=== PATIENT | male | born 1975 | race Caucasian/White ===

== ENCOUNTER 2025-11-10 18:09 | Emergency (ER) | payer SELFPAY ==
--- OUTSIDE RECORDS SUMMARY | 2025-11-10 18:12 | XMS_ITS | Clinical Summary ---
Author Organization [facility] Address [address] [place] [address] Care Team Providers Care Choke Setter Name Role Phone Clinic, No Pcp Or Primary Care Provider Unavaila ble Allergies No known active allergies Medications MedicationSigDispense QuantityRefillsLast FilledStart DateEnd DateStatus meloxicam (MOBIC) 7.5 mg tablet Indications:Chronic dental painTake 1 Tablet (7.5 mg) by mouth once daily. 7 Tablet 06/27/2023ctive Active Problems ProblemNoted DateDiagnosed DateErectile /25/6334Uhcrlim16/25/2022 Overview (09/08/2025): Diagnosis Code replaced due to regulatory update Immunizations ImmunizationAdministration DatesNext RfpUdjf2505/06/2022 Family History Medical HistoryRelationNameCommentsCancerFatherglioblastomaCancerSonlymphoma RelationNameStatusCommentsFatherDeceasedMotherAliveSon Social History Tobacco UseTypesPacks/DayYears UsedDateSmoking Tobacco: Every DayCigarettes0.525 Smokeless Tobacco: CurrentChew Tobacco Cessation:Ready to Q uit: Yes; Counseling Given: Yes Alcohol UseStandard Drinks/WeekCommentsNot Currently0 (1 standard drink = 0.6 oz pure alcohol)PHQ-2AnswerDate RecordedPHQ-2 TOTAL VEACY520ocial ConnectionsAnswerDate RecordedFrequency of Communication with Friends and Family Not on file06/30/2024Financial Resource StrainAnswerDate RecordedDifficulty of Paying Living Gjeoyszw923ifficulty of Paying Living ExpensesNot on file 06/27/2023Food InsecurityAnswerDate RecordedWorried About Running Out of Food in the Last Nuln068Transportation NeedsAnswerDate RecordedLack of Transportation (Medical)Housing StabilityAnswerDate RecordedUnable to Pay for Housing in the Last Wadf382Sex and Gender InformationValueDate RecordedSex Assigned at BirthNot on fileLegal FwkYxxr1005/03/2020 9:08 AM CDT Gender IdentityNot on fileSexual OrientationNot on file Last Filed Vital Signs Vital SignReadingTime TakenCommentsBlood Jdnbeenj071/71006/27/2023 5:10 PM CDT Knmom9692/29/2023 5:10 PM QCVUcyxoxhafny85.2 ??C (99 ??F)06/27/2023 5:10 PM CDT Respiratory Zmyc321206/27/2023 5:10 PM CDTOxygen Ddrohsjnzx41%06/27/2023 5:10 PM CDTInhaled Oxygen Concentration--Vjilmg04.2 kg (190 lb)06/27/2023 5:10 PM CDT Nfqvwd256.9 cm (6')05/06/2022 4:24 PM CDTBody Mass Index25.77005/06/2022 4:24 PM CDT Plan of Treatment Health MaintenanceDue DateLast DoneCommentsHIV for age 15-Hepatitis C screening for age 18-Hepatitis B series for 19+ (1 of 3 - 19+ 3- dose series)1994Colonoscopy through age Depression screening for age 12+/2BMI (ht and wt on same day) for age 18+05/06/2023 05/06/2022, 04/16/2022neumococcal series for age 50+ (1 of 1 - PCV)2025 Zoster (shingles) series for age 50+ (1 of 2)5COVID-19 vaccine series (3 - 2024- season), 02/21/2021Influenza Vaccine (#1) 2025Lipids for age 45-750/Tetanus phjcmyh9105/06/2032 05/06/2022SV vaccine for adults or (1 - 1-dose 75+ series)2050 Procedures Procedure NamePriorityDate/TimeAssociated DiagnosisCommentsLIPID PANELRoutine 05/06/2022 4:53 PM CDT Mixed hyperlipidemia from Last 3 Months or Most Recently Relevant to Health Maintenance Results * (ABNORMAL) LIPID PANEL (05/06/2022 4:53 PM CDT)ComponentValueRef RangeTest MethodAnalysis TimePerformed AtPathologist SignatureCHOLESTEROL,FPHQF727(H)100 - 199 mg/dL05/07/2022 7:27 PM [facility] EGWYPWTZQBZGJ935<150 mg/dL05/07/2022 7:27 PM [facility] LABORATORYHDL FRHGHWCYCAG94>40 mg/dL05/07/2022 7:27 PM [facility] LABORATORYNON-HDL ZOZUIJRDRTJ677<145 mg/dl05/07/2022 7:27 PM [facility] LABORATORYCHOL/HDL RATIO2.84<4.50 05/07/2022 7:27 PM [facility] LABORATORYLDL LDVXNNLGQGD830<=130 mg/dL05/07/2022 7:27 PM [facility]- CENTRAL LABORATORYVLDL JXKZUCXWHIM72<=30 mg/dL05/07/2022 7:27 PM [facility]ENTRAL LABORATORYPROVIDER ORDERED VLWZAZIHYABL05/08/2022 7:27 PM [facility]ENTRAL LABORATORYSpecimen (Source) Anatomical Location / LateralityCollection Method / VolumeCollection Time Received TimeBloodBLOOD SPECIMEN / UnknownVenipuncture / Vpiyevm5505/06/2022 4:53 PM CDT05/06/2022 4:53 PM CDT Narrative Authorizing ProviderResult TypeResult StatusRodevens Matthews MDCHEMISTRY Final ResultPerforming OrganizationAddressCity/State/ZIP CodePhone Number [facility] [address] [place] [address], from Last 3 Months or Most Recently Relevant to Health Maintenance Insurance * Guarantor: Josh PalAccount TypeRelation to PatientDate of BirthPhone Billing AddressPersonal/QjkogiQopj1975 [address] [place] [address] Care Teams Team MemberRelationshipSpecialtyStart DateEnd Date Clinic, No Pcp Or . PCP - General05/03/20
--- OUTSIDE RECORDS SUMMARY | 2025-11-10 18:12 | XMS_ITS | Patient Health Record ---
Author Organization [facility] Address [address] [place] [address] Phone [phone] Care Team Providers Care Public Affairs Officer Name Role Phone Marina Wright Primary Care Provider Delia PEARSON MD [facility] [phone] Reason For Referral No Information Medications Medication SIG (Take, Route, Frequency, Duration) Notes Start Date End Date Diagnosis (ICD Code) Status Lidocaine Viscous HCl Not-TakingdexAMETHasone 0.5 MG/5ML Lmprwjcy75 ml swish and spit Three times a day; Duration: 10 days05/12/2019Aphthous ulcer of mouth (ICD_10 - K12.0)Active IbuprofenActiveDoxycycline HyclateActivevalACYclovir HClActive HYDROcodone-AcetaminophenActive Social History Tobacco Use: Social History Observation Description Date Details (start date - stop date) Current Smoker NA - NA Sex Observation Social History Observation Description Sex Observation Male Social History :Social InfoQuestionAnswerNotesHow often do you consume alcohol?Answer:never Recreational drug useSocial InfoQuestionAnswerNotesDid you ever use recreational drugs?Answer:YesTobacco Use:Social InfoQuestionAnswerNotesTobacco use/smokingAre you acurrent smoker? How many cigarettes a day do you smoke?6-10 Problems Problem Type SNOMED Code ICD Code Dates Problem Status W/U Sta tus Risk Notes Problem Oral phase dysphagia (350535036) Dysphagia, oral phase (R13.11) Added On:05/12/2019 Active confirmed ProblemAphthous ulcer of mouth (705631528)Aphthous ulcer of mouth (K12.0) Added On:05/12/2019 ActiveconfirmedProblemOropharyngeal dysphagia (34955771)Dysphagia, pharyngeal (R13.13) Added On:05/12/2019 Activeconfirmed Plan Of Treatment No Information Insurance Providers Payer Name Payer Address Payer Phone Subscriber Number Group Number Insured Name Patient Relationship to Insured Coverage Start Date Coverage End Date [facility] PRIOR TO 21 [address] [place], [place] [id number] Josh Harry Self - patient is the insured Medical (General) History Medical History History ICD Code Pre-DM
--- OUTSIDE RECORDS SUMMARY | 2025-11-10 18:12 | XMS_ITS | Clinical Summary ---
Author Organization [facility] Address [address] [place] [address] Care Team Providers Care Linen Sorter Name Role Phone [facility] Primary Care Provider Allergies No known active allergies Medications MedicationSigDispense QuantityRefillsLast FilledStart DateEnd DateStatus magic mouthwash (FIRST-MOUTHWASH BLM) compounding kit Swish and swallow 5-10 mLs in mouth every 6 hours as needed for mouth sores 119 mL 05/03/2019Active lidocaine HCl (XYLOCAINE) 2 % solution Swish and spit 10 mLs in mouth every 3 hours as needed for moderate pain ; Max 8 doses/24 hour period. 100 mL 05/08/2019Active Active Problems ProblemNoted DateDiagnosed DateSuicidal zimwrems37/28/2015CARDIOVASCULAR SCREENING; LDL GOAL LESS THAN 12983 Social History Tobacco UseTypesPacks/DayYears UsedDateSmoking Tobacco: Every DayCigarettes Smokeless Tobacco: Current Tobacco Cessation:Counseling Given: Yes Alcohol UseStandard Drinks/WeekCommentsNo0 (1 standard drink = 0.6 oz pure alcohol)occasionallyAdolescent EducationAnswerDate RecordedGetting School Help NeededNot on file09/13/2023Sex and Gender InformationValueDate RecordedSex Assigned at BirthNot on fileLegal CuzRejh49/04/2012 3:16 AM CSTGender Identity Not on fileSexual OrientationNot on file Last Filed Vital Signs Vital SignReadingTime TakenCommentsBlood Yiuvfnly666/58724/ 10:26 PM IMMIGRATION PATROL INSPECTOR Amnds017610/18/2022 10:26 PM UQRPxwvahtjlcm95.7 ??C (98 ??F)10/18/2022 10:26 PM CSTRespiratory Rdaf706712/18/2021 10:26 PM CSTOxygen Pxqzftzanr636%10/18/2022 10:26 PM CSTInhaled Oxygen Concentration--Csynvn29.6 kg (177 lb 11.1 oz) 10/18/2022 10:26 PM QEKTlyghr435.4 cm (6' 1)10/18/2022 10:26 PM CSTBody Mass Index23.44112/18/2021 10:26 PM IMMIGRATION PATROL INSPECTOR Plan of Treatment Health MaintenanceDue DateLast DoneCommentsADVANCE CARE RBOMOFWZ1975ANNUAL REVIEW OF HM DZUKSJ84 1975CT RNSHMXCORRRE70/19/9526PHA15 1975FLEX SIG 1975sDNA (Cologuard)1975 0010KMRVUKRNFSH40/19/1985COLORECTAL CANCER CJURYEJXE10/19/1985HEPATITIS C WBQKGKILV44/19/1993HEPATITIS B VACCINE (1 of 3 - 19+ 3-dose series)04/17/19944329XISLU09YEARLY PREVENTIVE VISIT /2PHQ-2 (once per calendar year)2024PNEUMOCOCCAL VACCINE 50+ YEARS (1 of 1 - PCV)2025ZOSTER VACCINE (1 of 2)2025OVID-19 VACCINE (3 - season)/, 02/21/2021INFLUENZA VACCINE (#1)2025DIABETES SYEPFSNZV27/19/938676/, 09/26/2015DTAP/TDAP/TD VACCINE (2 - Td or Tdap)/05/2022HIV WIGLGXUGGQzpgmwhvq45/09/2019HPV VACCINE (No Doses Required)CompletedMENINGITIS VACCINEAged OutNo longer eligible based on patient's age to complete this topic Procedures Procedure NamePriorityDate/TimeAssociated DiagnosisCommentsBASIC METABOLIC PANEL STAT11/ 10:29 PM IMMIGRATION PATROL INSPECTOR HIV ANTIGEN ANTIBODY CBYXTLLXF41/09/2019 6:36 PM CDT Recurrent oral ulcers LIPID JFVYKMZCeftuid48/28/2015 8:29 AM CDT from Last 3 Months or Most Recently Relevant to Health Maintenance Results * (ABNORMAL) Basic metabolic panel (10/18/2022 10:29 PM IMMIGRATION PATROL INSPECTOR)ComponentValueRef RangeTest MethodAnalysis TimePerformed AtPathologist CyravlzgbMngqsv406741 - 145 mmol/L112/18/2021 11:10 PM [facility] LABORATORYPotassium4.13.4 - 5.3 mmol/L 10/18/2022 11:10 PM [facility] VFFXAUWBEWYtiaxnsi39565 - 107 mmol/L112/18/2021 11:10 PM [facility] LABORATORYCarbon Dioxide (CO2)2822 - 29 mmol/L112/18/2021 11:10 PM [facility] LABORATORYAnion Gap87 - 15 mmol/L112/18/2021 11:10 PM [facility] LABORATORYUrea Soroztiy98.4(H)6.0 - 20.0 mg/dL10/18/2022 11:10 PM [facility] LABORATORYCreatinine 0.970.67 - 1.17 mg/dL10/18/2022 11:10 PM [facility] LABORATORYCalcium9.28.6 - 10.0 mg/dL10/18/2022 11:10 PM [facility] JMWSAIHDKUTitlojf4221 - 99 mg/dL10/18/2022 11:10 PM [facility] LABORATORYGFR Estimate>90>60 mL/min/1.93v40810/18/2022 11:10 PM [facility] LABORATORYComment:Effective November 19, 2021 eGFRcr in adults is calculated using the 2020 CKD-EPI creatinine equation which includes age and gender (Zev et al., NEJ, DOI: 10.1056/FMIVxq0551611)Specimen (Source) Anatomical Location / LateralityCollection Method / VolumeCollection Time Received TimeBloodSTRUCTURE OF LEFT UPPER LIMB / UnknownVenipuncture / Unknown 10/18/2022 10:29 PM CST10/18/2022 10:34 PM IMMIGRATION PATROL INSPECTOR Narrative Authorizing ProviderResult TypeResult StatusLisandro Santana MDLAB - BLOOD ORDERABLESFinal ResultPerforming OrganizationAddressCity/State/ZIP CodePhone Number [facility] [address] Lab (1st floor, no room number) [place] [address], [facility] [phone] * HIV Antigen Antibody Combo (05/08/2019 6:36 PM CDT)ComponentValueRef RangeTest MethodAnalysis TimePerformed AtPathologist SignatureHIV Antigen Antibody Combo NonreactiveNR^Dserkrdkztq55/10/2019 12:25 PM CDTUNSAINT LUKE INSTITUTEComment:HIV-1 p24 Ag & HIV-1/HIV-2 Ab Not DetectedSpecimen (Source)Anatomical Location / LateralityCollection Method / VolumeCollection TimeReceived TimeBlood specimen (specimen)05/08/2019 6:36 PM CDT05/08/2019 6:40 PM CDT Narrative Authorizing ProviderResult TypeResult StatusSami Saunders MDLAB - BLOOD ORDERABLESFinal ResultPerforming OrganizationAddressCity/State/ZIP CodePhone Number [address] [address] * (ABNORMAL) Lipid panel (09/26/2015 8:29 AM CDT)ComponentValueRef RangeTest MethodAnalysis TimePerformed AtPathologist WasyxbvtcHlppwyllmmr806(H)<200 mg/dLUNROCKINGHAM MEMORIAL HOSPITALComment: LDL Cholesterol is the primary guide to therapy. The NCEP recommends further evaluation of: patients with cholesterol greater than 200 mg/dL if additional risk factors are present, cholesterol greater than 240 mg/dL, triglycerides greater than 150 mg/dL, or HDL less than 40 mg/dL. Fvrfnrtoxrivc908(H)0 - 150 mg/dLBRIGHTLOOK HOSPITALHDL Qihjspmaeok71>40 mg/dLBRIGHTLOOK HOSPITALLDL Cholesterol Yvxljjjzgp7637 - 129 mg/dLBRIGHTLOOK HOSPITALComment: LDL Cholesterol is the primary guide to therapy: LDL-cholesterol goal in high risk patients is <100 mg/dL and in very high risk patients is <70 mg/dL. VLDL-Aozpxjbefrp45(H)0 - 30 mg/dLUNROCKINGHAM MEMORIAL HOSPITAL Cholesterol/HDL Ratio2.50.0 - 5.0UNROCKINGHAM MEMORIAL HOSPITAL Specimen (Source)Anatomical Location / LateralityCollection Method / Volume Collection TimeReceived TimeBlood specimen (specimen)09/26/2015 8:29 AM CDT 09/26/2015 8:36 AM CDT Narrative Authorizing ProviderResult TypeResult StatusLaura Junaid Hernandez DOLAB - BLOOD ORDERABLESFinal ResultPerforming OrganizationAddressCity/State/ZIP CodePhone Number [facility] [address] [place] [address] from Last 3 Months or Most Recently Relevant to Health Maintenance Insurance * Guarantor: Josh Pal TypeRelation to PatientDate of BirthPhone Billing [id number] NONE (Work) [address] [place] [address] Advance Directives For more information, please contact: [phone] * Full Code (Latest Code Status on File) Date ActivatedDate PdfsmscnahpAfycygpr56/28/2015 12:12 AM09/28/2015 2:33 PM Care Teams Team MemberRelationshipSpecialtyStart DateEnd [facility] [address] [place] [address] PCP - Mvjcnmt61/27/15
[2025-11-10 18:19] VITALS: BP 168/115; PULSE 82; RESP 16; TEMP 36.8; O2SAT 98; BMI 22.7
--- NOTE | 2025-11-10 20:06 | CRLHL7_ITS ---
For Patients: As a result of the Century Cures Act, medical imaging exams and procedure reports are released immediately into your electronic medical record. You may view this report before your referring provider. If you have questions, please contact your health care provider. Indication: Left upper tooth pain. Abscess. Technique: CT images of the facial bones following intravenous contrast. Comparison: None. Findings: Extensive dental caries and periapical lucencies involving the remaining maxillary teeth. Inflammatory stranding and soft tissue swelling in the left premaxillary region. Peripherally enhancing lesion overlying the left superior alveolar ridge adjacent to tooth 10 measuring 10 x 7 x 14 mm (TR/AP/CC), compatible with abscess. The globes are symmetric. No postseptal inflammation. Mild to moderate right maxillary sinus mucosal thickening. The mastoid air cells are clear. Limited images through the brain are without intracranial mass effect. Impression: Extensive dental caries and periapical lucencies involving the remaining maxillary teeth. Inflammatory stranding and soft tissue swelling in the left premaxillary region. Peripherally enhancing 1.4 cm lesion overlying the left superior alveolar ridge adjacent to tooth 10, compatible with abscess. Please note that all CT scans at this facility use dose modulation, iterative reconstruction, and/or weight-based dosing when appropriate to reduce radiation dose to as low as reasonably achievable. Dictated by Souleymane Hoffman MD @ 11/10/2025 8:44:09 PM (Electronically Signed)
--- NOTE | 2025-11-10 20:19 | ED_ITS ---
HPI - Dental/Oral General Date Seen: 11/10/25 Chief complaint: Dental/Oral/Mouth Injury/Pain Stated complaint: Tooth infection spreading around face Time Seen by Provider: 11/10/25 19:35 Source: patient Mode of arrival: ambulatory Limitations: no limitations History of Present Illness HPI Narrative: Patient is a very nice 50-year-old gentleman presents here with left upper tooth pain and swelling, secondary to a dental infection, he has had this now for the past 3 days, usually just takes amoxicillin which she had left over and started it 3 days ago but noted that this is not working, yesterday he did take some Tylenol ibuprofen but today's taken nothing for this. He denies any fevers or chills, he says he is able to open his mouth, but the pain is worse he feels this pointing area just above his left canine tooth, and thinks he may have an abscess. 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 He thinks this is what gave him his bad teeth. 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 Complaint: tooth pain Location: Tooth # (11) Onset (ago): day(s) Duration: constant Severity: moderate Relieving factors: nothing Exacerbating factors: cold and drinking fluids Context: history of dental caries and poor dental care Associated symptoms: gum swelling Treatment prior to arrival: none Related Data Home Medications ?Medication ?Instructions ?Recorded ?Confirmed No Known Home Medications 11/10/2510/30 Allergies Allergy/AdvReac Type Severity Reaction Status Date / Time No Known Drug Allergies Allergy Verified 11/10/25 20:25 Review of Systems Status of ROS: Reports: 10 or more systems reviewed and unremarkable except as noted in History and below Exam Narrative: Exam Narrative: On examination he is very slight swelling noted of his left upper maxilla region, mouth opening is normal with absence of trismus, no lymphadenopathy anterior posterior chains, neck is supple, TMs are normal, I am able to see an area of pointing with an absent left canine upper. Which appears to be abscess. Const: Vital Signs, click to edit/add: Vital Signs - 24 hr 11/10/25 18:19 11/10/25 20:39 Temperature 98.3 F Pulse Rate [Pulse Oximeter] 82 72 Respiratory Rate 16 16 Blood Pressure [Ri ght Upper Arm] 168/115 H 148/101 H Pulse Oximetry 98 99 Oxygen Delivery Me thod Room Air Room Air Course Course ED Course: I applied let to his gumline, after 15 minutes of was reapplied, then I used of 1% lidocaine with epi, to give him an apical block. I then was able to withdraw approximately 2 mL of katty pus, consistent from the abscess, I further in largest with a 15 scalpel blade. Patient tolerated this well. In felt a lot better. Katty blood loss was less than 2 mL. I will refill his antibiotics. Will continue to swish and spit. He will return if signs and symptoms of worsening. Vital Signs Vital signs: Initial Vital Signs Temperature 98.3 F 11/10/25 18:19 Temperature Source Temporal Artery Scan 11/10/25 18:19 Pulse Rate 82 11/10/25 18:19 Respiratory Rate 16 11/10/25 18:19 Blood Pressure 168/115 H 11/10/25 18:19 Blood Pressure Mean 132 H 11/10/25 18:19 Pulse Oximetry 98 11/10/25 18:19 Oxygen Delivery Method Room Air 11/10/25 18:19 Vital Signs Temperature 98.3 F 11/10/25 18:19 Pulse Rate 82 11/10/25 18:19 Respiratory Rate 16 11/10/25 18:19 Blood Pressure 168/115 H 11/10/25 18:19 Pulse Oximetry 98 11/10/25 18:19 Oxygen Delivery Method Room Air 11/10/25 18:19 Temperature 98.3 F 11/10/25 18:19 Pulse Rate 72 11/10/25 20:39 Respiratory Rate 16 11/10/25 20:39 Blood Pressure 148/101 H 11/10/25 20:39 Pulse Oximetry 99 11/10/25 20:39 Oxygen Delivery Method Room Air 11/10/25 20:39 Medications Administered Medications: Discontinued Medications Generic Name Dose Route Start Last Admin Trade Name Freq PRN Reason Stop Dose Admin Sodium Chloride 1,000 mls @ 1,000 mls/hr 11/10/25 20:15 11/10/25 21:40 0.9 % Sodium Chloride 1000 Ml IV 11/10/25 21:14 Infused .Q1H FEMI Infusion Ketorolac Tromethamine 30 mg 11/10/25 20:06 11/10/25 20:35 Ketorolac 30 Mg/Ml Inj IVP 11/10/25 20:07 30 mg ONCE ONE Administration Lidocaine/Epinephrine 20 ml 11/10/25 21:03 11/10/25 21:48 Lidocaine 1%-Epi 1:100,000 Mdv INFILTRATI 11/10/25 21:04 20 ml ONCE ONE Administration Lidocaine/Epinephrine/Tetracaine 3 ml 11/10/25 21:03 11/10/25 21:09 Lidocaine/Epinep/Tetracaine 3 Ml Gel..Ml. TOPICAL 11/10/25 21:04 3 ml ONCE ONE Administration MDM - Dental/Oral MDM Narrative Medical decision making narrative: I discussed with him that he appears to have a dental abscess, I think a reasonable approach because of his swelling be to do a CT scan with IV contrast, CBC, and likely incision and drainage of his abscess. I think get this will help his pain a lot, I recommend using some Novocain he was saying that he may want this without the Novocain, I think that would be a rather not a good choice. We will give him some Toradol, and he was also telling me that he was having some left flank pain, do basic metabolic profile and a UA also to make sure he does not have anything going on with his urine. Differential Diagnosis Differential diagnosis: Likely gingival abscess, dental caries, toothache, dental abscess and aphthous ulcer Medical Records Attestation: I reviewed the patient's medical records. Lab Data Attestation: I reviewed the patient's lab results. Labs: Lab Results 11/10/25 11/10/25 Range/Units 20:14 20:20 WBC 6.56 (4.50-11.00) K/uL RBC 4.56 (4.30-5.90) m/uL Hgb 13.4 L (13.5-17.5) gm/dL Hct 38.9 (37.0-53.0) % MCV 85 (80-100) fL MCH 29 (26-34) pg MCHC 34 (32-36) gm/dL RDW Coeff of Bing 12.5 (11.5-15.5) % Plt Count 176 (140-440) K/uL Neut % (Auto) 64.1 (42.0-72.0) % Lymph % (Auto) 24.5 (20-44) % Ransom % (Auto) 8.7 (0.0-11.0) % Eos % (Auto) 2.4 (0.0-7.0) % Baso % (Auto) 0.3 (0.0-3.0) % Neut # (Auto) 4.20 (1.7-7.0) K/uL Lymph # (Auto) 1.61 (0.90-2.90) K/uL Ransom # (Auto) 0.60 (0.00-0.90) K/UL Eos # (Auto) 0.16 (0.00-0.50) K/uL Baso # (Auto) 0.02 (0.00-0.30) K/uL Abs Immat Gran (auto) 0.00 (0.00-0.30) K/uL Imm/Tot Granulo (auto) 0.0 % Sodium 136 (135-149) mmol/L Potassium 4.0 (3.6-5.1) mmol/L Chloride 100 (96-114) mmol/L Carbon Dioxide 25 (20-32) mmol/L Anion Gap 11 (7-15) mEq/L BUN 15 (7-30) mg/dL Creatinine 0.8 (0.5-1.5) mg/dL Estimated Creat Clear 125.45 Estimated GFR 108 ml/min Glucose 105 (60-115) mg/dL Calcium 8.9 (8.4-10.6) mg/dL C-Reactive Protein 1.8 H (0.5-1.0) mg/dL Urine Color Yellow (Yellow) Urine Appearance Clear (Clear) Urine pH 6.5 (5.0-8.5) Ur Specific [place] 1.020 (1.000-1.030) Urine Protein Negative (Negative) Urine Glucose (UA) Negative (Negative) Urine Ketones 1+ A (Negative) Urine Blood 2+ A (Negative) Urine Nitrite Negative (Negative) Urine Bilirubin Negative (Negative) Urine Urobilinogen 0.2 (0.2-1.0) Ur Leukocyte Esterase Negative (Negative) Urine RBC 5-10 A (0-2) Urine WBC 0-2 (0-5) Ur Squamous Epith Cells Few (None-Few) Urine Bacteria None (None) Urine Mucus Moderate A (None) Imaging Data Facial CT: Radiologist's impression: [place] [address] Diagnostic Imaging Report Patient: Josh Pal MR#: [id number] : 1975 Acct:[id number] Loc: ED Service Date: 11/10/[address]: Ordering Physician: Pedro Frazier M.D. Date of Service: 11/10/25 Procedure(s): CT facial bones w con Accession Number(s): [id number] cc: Pedro Frazier M.D.~ For Patients: As a result of the Cures Act, medical imaging exams and procedure reports are released immediately into your electronic medical record. You may view this report before your referring provider. If you have questions, please contact your health care provider. Indication: Left upper tooth pain. Abscess. Technique: CT images of the facial bones following intravenous contrast. Comparison: None. Findings: Extensive dental caries and periapical lucencies involving the remaining maxillary teeth. Inflammatory stranding and soft tissue swelling in the left premaxillary region. Peripherally enhancing lesion overlying the left superior alveolar ridge adjacent to tooth 10 measuring 10 x 7 x 14 mm (TR/AP/CC), compatible with abscess. The globes are symmetric. No postseptal inflammation. Mild to moderate right maxillary sinus mucosal thickening. The mastoid air cells are clear. Limited images through the brain are without intracranial mass effect. Impression: Extensive dental caries and periapical lucencies involving the remaining maxillary teeth. Inflammatory stranding and soft tissue swelling in the left premaxillary region. Peripherally enhancing 1.4 cm lesion overlying the left superior alveolar ridge adjacent to tooth 10, compatible with abscess. Please note that all CT scans at this facility use dose modulation, iterative reconstruction, and/or weight-based dosing when appropriate to reduce radiation dose to as low as reasonably achievable. Dictated by Souleymane Hoffman MD @ 11/10/2025 8:44:09 PM (Electronically Signed) Discharge Plan Discharge Clinical Impression: Abscessed tooth, Hematuria Patient Disposition: Home w/ Parent or Adult Condition: Improved Instructions: Dental Abscess (ED), Abscess Incision and Drainage (DC), Root Canal (DC) Additional Instructions: You should be significantly better now, take your antibiotics that I have given you as directed, you can use Tylenol ibuprofen with the other no Novocain medications. Follow-up with dentistry will need procedure, correct this. But least now the abscess will be able to drain. Swish and spit for the next 2-4 hours. Will have a little bit of blood, return here if increasing pain swelling or other issues. There is no evidence of infection, your metabolic panel including her kidney function was all excellent. Your white count and hemoglobin were normal. There was however a little bit of red cells in her urine, which either tells me that she just passed a kidney stone, or there may be 1 still there. Rarely this also can be cancer causing this. So you will need to follow-up with primary care. I have listed of a rearly good primary care physician here in [place] and another 1 in [place] that you can see in follow-up. Activity Level: Light activity Discharge Diet: Regular Prescriptions: No Action No Known Home Medications Follow Up/Referrals: Paul Hairston MD [Staff Physician, Family Practice] Provider,Not a Local [Primary Care Provider, [facility]] Juanjose Linda MD [Staff Physician, Internal Medicine] Stand Alone Forms: [employer] Sales Info Instructions
[2025-11-10 20:34] LABS: Hematocrit* 38.9 % (37.0-53.0); Hemoglobin* 13.4 gm/dL (13.5-17.5); Immature Granulocytes Abs Auto 0.00 K/uL (0.00-0.30); Immature Granulocytes Pct Auto 0.0 %; Lymphocytes Absolute Auto 1.61 K/uL (0.90-2.90); Mean Corpuscular HGB Conc 34 gm/dL (32-36); Mean Corpuscular Hemoglobin 29 pg (26-34); Mean Corpuscular Volume 85 fL (80-100); RDW Coefficient of Variation % 12.5 % (11.5-15.5); Red Blood Count* 4.56 m/uL (4.30-5.90); White Blood Count* 6.56 K/uL (4.50-11.00)
[2025-11-10 20:35] LABS: Slide Review Reflex No
[2025-11-10 20:36] LABS: Chloride* 100 mmol/L (96-114); Potassium* 4.0 mmol/L (3.6-5.1); Sodium* 136 mmol/L (135-149)
[2025-11-10 20:38] LABS: Appearance Urine Clear (Clear)
[2025-11-10 20:39] VITALS: BP 148/101; PULSE 72; RESP 16; O2SAT 99
[2025-11-10 20:39] LABS: Anion Gap 11 mEq/L (7-15); Blood Urea Nitrogen* 15 mg/dL (7-30); Calcium* 8.9 mg/dL (8.4-10.6); Carbon Dioxide* 25 mmol/L (20-32); Creatinine* 0.8 mg/dL (0.5-1.5); Est. Creatinine Clearance* 125.45; Estimated Glomerular Filt Rate 108 ml/min; Glucose* 105 mg/dL (60-115)
--- OUTSIDE RECORDS SUMMARY | 2025-11-10 20:57 | XMS_ITS | Patient Health Record ---
Author Organization [facility] Address [address] [place] [address] Phone [phone] Care Team Providers Care Mental Health Specialist Name Role Phone Marina Wright Primary Care Provider Delia PEARSON MD [facility] Reason For Referral No Information Medications Medication SIG (Take, Route, Frequency, Duration) Notes Start Date End Date Diagnosis (ICD Code) Status Lidocaine Viscous HCl Not-TakingdexAMETHasone 0.5 MG/5ML [id number] ml swish and spit Three times a [...] tus Risk Notes Problem Oral phase dysphagia (763441481) Dysphagia, oral phase (R13.11) Added On:05/12/2019 Active confirmed ProblemAphthous ulcer of mouth (582347423)Aphthous ulcer of mouth (K12.0) Added On:05/12/2019 ActiveconfirmedProblemOropharyngeal dysphagia (15709696)Dysphagia, pharyngeal (R13.13) Added On:05/12/2019 Activeconfirmed Plan Of Treatment No Information Insurance Providers Payer Name Payer Address Payer Phone Subscriber Number Group Number Insured Name Patient Relationship to Insured Coverage Start Date Coverage End Date [facility] PRIOR TO 21 [address] [place], [place] [id number] Josh Harry Self - patient is the insured Medical (General) History Medical History History ICD Code Pre-DM
[2025-11-10] MEDS: LIDOCAINE/EPINEP/TETRACAINE 3 ML GEL..ML. TOPICAL (21:09)
== END 2025-11-10 22:05 | disposition home or self-care (01) ==
PROVIDERS: Emergency Provider Family Medicine
DX: K04.7 Periapical abscess without sinus (principal); R31.9 Hematuria, unspecified; R10.A2 Flank pain, left side
CPT/HCPCS: 36415; 41800; 64400; 70487; 80048; 81001; 85025; 86140; 99283; 99284; 99285; J1885; J7030; Q9967